=== PATIENT | female | born 1985 | race Caucasian/White ===

== ENCOUNTER → 2024-05-02 15:55 | Outpatient (REF) | payer BC, SELFPAY | LOC: UCDH 15:55 | PROVIDERS: ATTENDING PHYSICIAN Physician Assistant Medical | DX: S99.922A Unspecified injury of left foot, initial encounter (principal) | CPT/HCPCS: 73630 ==

== ENCOUNTER 2025-03-23 21:36 | Emergency (ER) | payer BC, SELFPAY ==
[2025-03-23 21:38] VITALS: BP 133/85
[2025-03-23 23:13] VITALS: BMI 21.8
[2025-03-23 23:17] VITALS: BP 120/81
--- NOTE | 2025-03-23 23:24 | ED.GENMED ---
History of Present Illness
General
Chief Complaint: Skin Surface Trauma
Source: patient
Time Seen by Provider: 03/23/25 23:04
History of Present Illness
History of Present Illness:
40-year-old female presenting to the ER for evaluation after she was getting coffee mugs ready for tomorrow morning when 1 excellently slipped causing her to try and catch the mug but the mug broke and she sustained a laceration along the ulnar
surface of the volar forearm measuring approximately 1 cm, vertically oriented. No other injuries were sustained. Patient's tetanus is up-to-date.
Past History
Past History
ED Past Medical History: Psychiatric
ED Past Surgical History: Orthopedic
Social History
Tobacco: Non-smoker
Alcohol: Occasional
Drug: None
Personal:
Living: with family
Review of Systems
Review of Systems
All Other Systems: ROS reviewed and negative except as documented in HPI and ROS
Phy Exam
Physical Exam
Physical Exam:
GENERAL: Alert , in no apparent distress
EYE: conjunctiva clear
Head: Normocephalic atraumatic
NECK: Supple,
ENT: mmm.
LUNGS: no acute respiratory distress
NEUROLOGICAL: Alert and oriented
SKIN: Warm and dry, 1cm vertically oriented laceration, partial thickness, tendon visualized but intact. no sensory deficits
MUSCULOSKELETAL: well perfused.
PSYCH: Normal and appropriate interaction.
Scores
Heart Failure Risk
Heart Failure Risk Score: Not Applicable
Heart Score for Chest Pain Patients
STEMI patient?: Not applicable
Withdrawal Assessment of Alcohol
Withdrawal Assessment Completed?: Not applicable
Course
Vital Signs
Initial and Last Documented VS:
Initial Vital Signs
Temp Pulse Resp BP Pulse Ox
97.9 F 88 15 133/85 96
03/23/25 21:38 03/23/25 21:38 03/23/25 21:38 03/23/25 21:38 03/23/25 21:38
Last Documented Vital Signs
Temp Pulse Resp BP Pulse Ox
97.9 F 82 16 120/81 98
03/23/25 21:38 03/23/25 23:45 03/23/25 23:45 03/23/25 23:45 03/23/25 23:45
Procedures
Laceration Closure
Right Volar Wrist:
Status of Wound: clean
Size of Wound in cm: 1
Description of Wound Edges: sharp
Preparation: cleaned with saline
Anesthesia: 1% Lidocaine
Revision/Debridement: routine- no revision
Type of Closure: single layer closure
Skin Closure Material: 5-0 nylon
Number of sutures: 2
MDM/Problems Addressed
Differential Diagnosis Includes:
simple laceration
no tendon or nerve involvement
no concern for fracture
MDM/Problems Addressed:
40-year-old female presenting the ER for evaluation after sustaining accidental laceration to the right wrist. Laceration repaired as above without difficulty. Patient advised on wound care. Stable for discharge home.
*Pulse Oximetry
SaO2: 98
Oxygen Mode of Delivery: Room air
Patient hypoxic: no
*Critical Care Note
Total Time (30-74mins, 75-104mins- exclusive of procedures): Not Applicable
ED Attending Note
-
Portions of this chart may have been created with voice recognition software.� Occasional wrong word or��sound alike� substitutions may have occurred due to the inherent limitations of voice recognition software.
Discharge Plan
Departure
Patient Disposition: Home (Routine Discharge)
Date of Disposition: 03/23/25
Time of Disposition: 23:25
Patient with high blood pressure during this ER visit?: No
Discharge Problem:
Laceration of right wrist
Instructions: Laceration Repair With Stitches (DC)
Prescriptions:
No Action
vit [id number] [ Vitamin] 1 EACH tablet
1 ea PO DAILY
ibuprofen 600 MG tablet
600 mg PO Q4HPRN PRN (Reason: moderate pain/cramps) 0RF
amoxicillin-pot clavulanate 1 TABLET tablet
1 tab PO Q12 Qty: 14 0RF
Referrals:
UNKNOWN - PT DOES,NOT KNOW [Family Provider]
Activity Restrictions/Additional Instructions:
Suture removal in 7-10 days
Interventions
Interventions:
*Risk Screen - Suicide Last Done: 03/23/25 23:30
*General Assessment Last Done: 03/23/25 21:38
*Neglect/Abuse Screening Last Done: 03/23/25 21:38
*ED- Fall Risk Assessment Last Done: 03/23/25 23:30
*ED COVID-19 Vaccine History Last Done: 03/23/25 21:38
*Nursing Disposition Last Done: 03/23/25 23:45
ED-Skin Assessment Last Done: 03/23/25 23:10
Discharge Date and Time
Discharge Date/Time: 03/23/25 23:45
Print Language: SERBIAN
[2025-03-23 23:45] VITALS: BP 120/81
== END 2025-03-23 23:45 | disposition home or self-care (01) ==
LOC: EMR 21:36
PROVIDERS: EMERGENCY PHYSICIAN Student in an Organized Health Care Education/Training Program
DX: S61.511A Laceration without foreign body of right wrist, initial encounter (principal); W45.8XXA Other foreign body or object entering through skin, initial encounter; W20.8XXA Other cause of strike by thrown, projected or falling object, initial encounter
CPT/HCPCS: 99282; 12001